=== PATIENT | female | born 1950 | race Caucasian/White ===

== ENCOUNTER → 2018-01-25 | Outpatient (CLI) | payer MEDICARE ==
[~2018-01-25] MED LIST: CYAN10002 IM; CYAN100063 SL; FOLI-17 PO; PANT40TA3 PO
== END | disposition home or self-care (01) ==
LOC: CFH 08:36
PROVIDERS: ATTEND Nurse Practitioner Primary Care
DX: M81.0 Age-related osteoporosis without current pathological fracture (principal); D64.9 Anemia, unspecified; R53.83 Other fatigue; R01.1 Cardiac murmur, unspecified; R51 Headache; R20.2 Paresthesia of skin; R21 Rash and other nonspecific skin eruption; Z79.899 Other long term (current) drug therapy; Z85.3 Personal history of malignant neoplasm of breast
CPT/HCPCS: 77080

== ENCOUNTER 2019-10-22 05:47 | Emergency (ER) | payer MEDICARE ==
[~2019-10-22] VITALS: Ht 152.4 cm; Wt 50.8 kg
[2019-10-22 05:50] VITALS: BP 136/58
== END 2019-10-22 06:42 | disposition home or self-care (01) ==
LOC: ED 06:24
DX: S52.571A Other intraarticular fracture of lower end of right radius, initial encounter for closed fracture (principal); W17.89XA Other fall from one level to another, initial encounter; Y93.89 Activity, other specified; Y92.89 Other specified places as the place of occurrence of the external cause; Y99.8 Other external cause status
CPT/HCPCS: 99282